=== PATIENT | female | born 1985 | race Two or more races ===

== ENCOUNTER 2022-05-30 09:51 | Emergency (ER) | payer MEDICAID, OTHER ==
[~2022-05-30] VITALS: Ht 167.6 cm; Wt 88.0 kg
[2022-05-30 14:30] VITALS: BP 126/72
[2022-05-30] MEDS ORDERED: KETOROLAC TROMETH 60MG/2ML VIAL IM ONE (15:15)
[2022-05-30] MEDS ORDERED: CYCL-837 PO (15:20)
[2022-05-30] MEDS ORDERED: IBUP800T27 PO (15:20)
== END 2022-05-30 16:01 | disposition home or self-care (01) ==
LOC: ER 09:51
DX: S46.911A Strain of unspecified muscle, fascia and tendon at shoulder and upper arm level, right arm, initial encounter (principal); X58.XXXA Exposure to other specified factors, initial encounter; Y93.89 Activity, other specified; Y92.89 Other specified places as the place of occurrence of the external cause; Y99.8 Other external cause status
CPT/HCPCS: 81025; 96372; 99283; J1885

== ENCOUNTER → 2022-09-16 | Emergency (ER) | payer MEDICAID ==
[~2022-09-16] VITALS: Ht 165.1 cm; Wt 91.0 kg
[~2022-09-16] MED LIST: CYCL-837 PO; HYDROmorphone HCL 2 MG/ML VL/or syr IV ONE; IBUP800T27 PO; KETOROLAC TROMETH 30 MG/ML 1ML VIAL IV ONE; METOCLOPRAMIDE HCL 5MG/ml INJ 2ml VIAL IV ONE; NAP500T PO; SODIUM CHLORIDE 0.9% 1,000 ML IV ONE
[2022-09-16 16:47] LABS: Basophils # (auto) 0.1 10 ^3/uL (0-0.2); Basophils % (auto) 0.9 % (0.0-2.0); Eosinophils # (auto) 0.1 10 ^3/uL (0-0.8); Hematocrit 40.7 % (36.0-46.0); Hemoglobin 13.9 g/dL (12.2-16.2); Lymphocytes # (auto) 2.4 10 ^3/uL (0.4-5.4); Lymphocytes % (auto) 25.2 % (10.0-50.0); Mean Corpuscular Hemoglobin 31.6 pg (28.0-32.0); Mean Corpuscular Hgb Conc. 34.3 g/dL (32.0-36.0); Mean Corpuscular Volume 92.1 fL (80.0-100.0); Monocytes # (auto) 0.5 10 ^3/uL (0-1.3); Monocytes % (auto) 5.7 % (0.0-12.0); Neutrophils # (auto) 6.4 10 ^3/uL (1.6-8.6); Neutrophils % (auto) 67.2 % (37.0-80.0); Nucleated Red Blood Cells % 0.2 %; Red Blood Cells 4.42 10^6/uL (4.0-5.20); Red Cell Distribution Width 12.9 % (11.8-14.3); White Blood Cell 9.6 10^3/uL (4.4-10.8)
[2022-09-17 02:00] VITALS: BP 116/78
== END | disposition home or self-care (01) ==
LOC: EDUNIT# 14:17 → ER 14:17 → EDBD 14:17
DX: S33.5XXA Sprain of ligaments of lumbar spine, initial encounter (principal); X58.XXXA Exposure to other specified factors, initial encounter; Y93.89 Activity, other specified; Y92.89 Other specified places as the place of occurrence of the external cause; Y99.8 Other external cause status
CPT/HCPCS: 36415; 72131; 83690; 84702; 85025; 96361; 96374; 96375; 99285; J1170; J1885; J2765; J7030

== ENCOUNTER 2023-01-29 15:48 | Emergency (ER) | payer MEDICAID, OTHER ==
[~2023-01-29] VITALS: Ht 167.6 cm; Wt 91.1 kg
[~2023-01-29 15:48] MED LIST changes: -HYDROmorphone HCL 2 MG/ML VL/or syr IV ONE; +IBUP-1456 PO; -IBUP800T27 PO; -KETOROLAC TROMETH 30 MG/ML 1ML VIAL IV ONE; -METOCLOPRAMIDE HCL 5MG/ml INJ 2ml VIAL IV ONE; -SODIUM CHLORIDE 0.9% 1,000 ML IV ONE
[2023-01-29] MEDS ORDERED: IBUP-1456 PO (20:30)
[2023-01-29 20:40] VITALS: BP 127/78
== END 2023-01-29 20:54 | disposition home or self-care (01) ==
LOC: ER 15:48
DX: G56.03 Carpal tunnel syndrome, bilateral upper limbs (principal); Z79.1 Long term (current) use of non-steroidal anti-inflammatories (NSAID); Z79.899 Other long term (current) drug therapy
CPT/HCPCS: 29125

== ENCOUNTER 2024-07-30 12:33 | Emergency (ER) | payer MEDICAID, OTHER ==
[~2024-07-30] VITALS: Ht 162.6 cm; Wt 76.3 kg
[2024-07-30 13:00] VITALS: PULSE 75; RESP 15; O2SAT 99
[2024-07-30] MEDS: SODIUM CHLORIDE 0.9% 1,000 ML IV ONE (13:17)
--- NOTE | 2024-07-30 13:35 | ECG ---
[facility] Test Date: 2024-07-30 Test Time: 12:40:59 Pat Name: FARTUN NAJERA Department: er Room: Gender: F Ink Blender: gp : 1985 Requested By: LAZARA DOUGLASS Order Number: [id number] Reading MD: Kai Horta Measurements Intervals [place] Rate: 74 P: 7 MI: 140 QRS: 64 QRSD: 97 T: 49 QT: 400 QTc: 444 Interpretive Statements Sinus rhythm Electronically Signed On 07-30-2024 14:18:43 PST by Kai Horta Please click the below link to view image of tracing.
[2024-07-30 13:36] LABS: Basophils # (auto) 0 10 ^3/uL (0-0.2); Basophils % (auto) 0.3 % (0.0-2.0); Eosinophils # (auto) 0 10 ^3/uL (0-0.8); Eosinophils % (auto) 0.2 % (0.0-7.0); Hematocrit 47.1 % (36.0-46.0); Lymphocytes # (auto) 1.5 10 ^3/uL (0.4-5.4); Lymphocytes % (auto) 9.5 % (10.0-50.0); Mean Corpuscular Hemoglobin 31.9 pg (28.0-32.0); Mean Corpuscular Volume 93.7 fL (80.0-100.0); Monocytes # (auto) 0.7 10 ^3/uL (0-1.3); Monocytes % (auto) 4.2 % (0.0-12.0); Neutrophils # (auto) 13.6 10 ^3/uL (1.6-8.6); Neutrophils % (auto) 85.8 % (37.0-80.0); Platelet Count (auto) 209 10^3/uL (140-450); Red Blood Cells 5.03 10^6/uL (4.0-5.20); Red Cell Distribution Width 13.5 % (11.8-14.3); White Blood Cell 15.9 10^3/uL (4.4-10.8)
[2024-07-30 13:44] LABS: Potassium 3.8 mmol/L (3.5-5.1); Sodium 142 mmol/L (136-145)
[2024-07-30 13:45] LABS: Anion Gap 8 (5-15); Carbon Dioxide 24 mmol/L (20-31)
[2024-07-30] MEDS ORDERED: MAALOX PLUS or MAALOX 30 ML PO ONE (13:45)
[2024-07-30 13:50] LABS: BUN/Creatinine Ratio 16.3 (10.0-20.0); Blood Urea Nitrogen 13 mg/dL (9-23)
[2024-07-30 13:51] LABS: Chloride 110 mmol/L (98-107); Glucose 107 mg/dL (74-106)
--- NOTE | 2024-07-30 14:52 | ED.PDOC ---
Altered Mental Status HPI Comments 81-year-old female with no past medical history presented with complaints of syncope. Patient was at a blood donation camp where she started feeling dizzy during the middle of the transfusion associated with nausea, vomiting, feeling of hot and cold, flushing and dizziness. That resolved transiently and patient went to use the restroom. After finishing the bowel movement, patient is again started feeling dizziness and asked for help. Patient had a syncopal attack after that almost for 10 seconds documented by the blood camp member. Currently patient is feeling thirsty and weak. She mentioned that she recently stopped the depot injection, contraceptive around last weak, and started having heavy menses that lasted for 5 days and resolved 3 days ago, Per EMS, patient's initial blood pressure was 68/47, was started on normal saline and in the ER her blood pressure improved to 85/55 with around 350 mL of fluids. She did not any complain of any abnormal body movement, palpitations, chest pain, shortness of breath, abdominal pain, diarrhea, bleeding from any site. ROS Constitutional: Generalized fatigue Eyes: No: Pain, Vision change, Conjunctivae inflammation, Eyelid inflammation, Other, Redness ENT: No: Ear pain, Ear discharge, Nose pain, Nose discharge, Nose congestion, Mouth pain, Mouth swelling, Throat pain, Throat swelling, Other Respiratory: No: Cough, Dry, Shortness of breath, SOB with excertion, Wheezing, Hemoptysis, Pleuritic Pain, Sputum, Wheezing, Other Cardiovascular: No: Chest Pain, Palpitations, Orthopnea, Paroxysmal Noc. Dyspnea, Edema, Lt Headedness, Other Gastrointestinal: Nausea, vomiting, no Abdominal Pain, Diarrhea, Constipation, Melena, Hematochezia, Other Musculoskeletal: No: other, neck pain, shoulder pain, arm pain, back pain, hand pain, leg pain, foot pain Neurological:; syncope, dizziness, no motor deficit, no sensory deficit Examination General Appearance: Alert, Oriented X3, Cooperative, No acute distress Respiratory: Clear to auscultation, Normal air movement Cardiovascular: Regular rate, Normal S1, Normal S2 Abdominal: Soft, nondistended Extremities: No cyanosis, No edema, Normal pulses, No tenderness/swelling Skin: No rashes, No breakdown Neuro: Normal speech and tone Chief Complaint: Syncope Time Seen by MD: 12:59 Primary Care Provider: VALENTINA Allergies: Coded Allergies: No Known Drug Allergy (Verified Allergy, Unknown, 05/30/22) Home Meds Active Scripts Ibuprofen (Ibuprofen) 800 Mg Tab, 1 TAB PO TID PRN, #30 TAB 0 Refills Prov:ASIF BENJAMIN 01/29/23 Naproxen (NAPROSYN TABLET) 500 Mg Tb, 1 TAB PO BID PRN for 10 Days, #20 TAB 1 Refill Prov:CHRISTOPHE VALDEZ MD 09/16/22 Ibuprofen (Ibuprofen) 800 Mg Tab, 1 TAB PO TID PRN, #30 TAB 0 Refills Prov:ASIF BENJAMIN 05/30/22 Cyclobenzaprine Hcl (Cyclobenzaprine Hcl) 5 Mg Tab, 1 TAB PO QPM, #14 TAB 0 Refills Prov:ASIF BENJAMIN 05/30/22 Information Source: Patient Mode of Arrival: EMS Past Medical History PAST MEDICAL HISTORY: Denies Past Medical History (Other): No past medical history Surgical History: Hernia Repair CARDIAC TECHNICIAN History: No Pertinent CARDIAC TECHNICIAN History Family History Family History: Unknown Family History (Other): No significant family history Social History Smoker: Non-Smoker Alcohol: Denies ETOH Use Drugs: Denies Drug Use Lives In: Home Physical Exam General Appearance: Other (Mentioned in the note) HEENT: Other (Mentioned in the note) Neck: Other (Mentioned in the note) Respiratory: Other (Mentioned in the note) Cardiovascular: Other (mentioned in the note) Breast Exam: Deferred Gastrointestinal: Other (Mentioned in the note) Genitalia: Deferred Pelvic: Deferred Rectal: Deferred Extremities: Other (Mentioned in the note) Neurologic: Other (Mentioned in the note) Cerebellar Function: Other (Mentioned in the note) Reflexes: Other (Mentioned in the note) Skin: Other (Mentioned in the note) Lymphatic: Other (Mentioned in the note) Was a procedure done? Was a procedure done?: No Differential Diagnosis (ALOC) Differential Diagnosis: Dehydration, Hypoglycemia, Sepsis, Seizure, Drug Overdose, ETOH Intoxication, Other (U) X-Ray, Labs, Meds, VS Vital Signs Date Time Temp Pulse Resp B/P (MAP) Pulse Ox O2 Delivery O2 Flow Rate FiO2 07/30/24 17:00 97.5 88 20 102/66 (78) 95 97.5 07/30/24 15:19 90 90/58 91 99/56 125 92/49 07/30/24 15:00 90 15 90/58 (69) 97 07/30/24 13:00 97.5 75 17 92/51 (65) 99 97.5 07/30/24 13:00 75 15 99 Room Air* 0 21 07/30/24 12:45 97.7 79 18 88/55 (66) 99 07/30/24 12:40 74 Lab Test 07/30/24 15:20 07/30/24 13:13 Range/Units Urine Color Yellow Yellow Urine Clarity Turbid H Clear Urine pH 5.5 5.0-9.0 Urine Specific [place] 1.022 1.001-1.035 Urine Protein Negative Negative Urine Ketones Negative Negative Urine Blood Negative Negative /uL Urine Nitrite Negative Negative Urine Bilirubin Negative Negative Urine Urobilinogen Normal Negative mg/dL Urine Leukocyte Esterase 1+ Negative /uL Urine RBC 1 0 - 4 /hpf Urine WBC 11 0 - 5 /hpf Urine Squamous Epithelial Cells Mod <5 /hpf Urine Bacteria Few H None Seen /hpf Urine Mucus Few None Seen Urine Glucose Normal Normal mg/dL Urine Test Negative Negative White Blood Count 15.9 H 4.4-10.8 10^3/uL Red Blood Count 5.03 4.0-5.20 10^6/uL Hemoglobin 16.0 12.2-16.2 g/dL Hematocrit 47.1 H 36.0-46.0 % Mean Corpuscular Volume 93.7 80.0-100.0 fL Mean Corpuscular Hemoglobin 31.9 28.0-32.0 pg Mean Corpuscular Hemoglobin Concent 34.0 32.0-36.0 g/dL Red Cell Distribution Width 13.5 11.8-14.3 % Platelet Count 209 140-450 10^3/uL Mean Platelet Volume 9.8 6.9-10.8 fL Neutrophils (%) (Auto) 85.8 H 37.0-80.0 % Lymphocytes (%) (Auto) 9.5 L 10.0-50.0 % Monocytes (%) (Auto) 4.2 0.0-12.0 % Eosinophils (%) (Auto) 0.2 0.0-7.0 % Basophils (%) (Auto) 0.3 0.0-2.0 % Neutrophils # (Auto) 13.6 H 1.6-8.6 10 ^3/uL Lymphocytes # (Auto) 1.5 0.4-5.4 10 ^3/uL Monocytes # (Auto) 0.7 0-1.3 10 ^3/uL Eosinophils # (Auto) 0 0-0.8 10 ^3/uL Basophils # (Auto) 0 0-0.2 10 ^3/uL Nucleated Red Blood Cells 0.0 % Sodium Level 142 136-145 mmol/L Potassium Level 3.8 3.5-5.1 mmol/L Chloride Level 110 H 98-107 mmol/L Carbon Dioxide Level 24 20-31 mmol/L Anion Gap 8 5-15 Blood Urea Nitrogen 13 9-23 mg/dL Creatinine 0.80 0.550-1.02 mg/dL Glomerular Filtration Rate Calc 97 >90 mL/min BUN/Creatinine Ratio 16.3 10.0-20.0 Serum Glucose 107 H 74-106 mg/dL Calcium Level 9.0 8.7-10.4 mg/dL Current Medications Medications (Trade) Dose Ordered Sig/Luzma Route Start Time Stop Time Status Last Admin Sodium Chloride 1,000 ml @ 1,000 mls/hr Q1H ONCE IV 07/30/24 13:00 07/30/24 13:59 DC 07/30/24 13:17 Ceftriaxone Sodium 50 ml @ 100 mls/hr DAILY@09 ONCE IV 07/30/24 16:30 07/30/24 16:59 DC 07/30/24 16:37 Time of 1ST Reevaluation: 16:41 Reevaluation 1ST: wants to leave AMA Patient Education/Counseling: Diagnosis, Treatment Family Education/Counseling: No Family Present Comments Patient presented with the syncope, dizziness, nausea, vomiting. workup was in itiated. Patient was given: IV fluids, IV Rocephin Labs revealed evidence of UTI, leukocytosis Patient left AMA despite explaining about the risk of leaving AMA Departure 1 Departure Time of Disposition: 17:00 Impression: Primary Impression: Syncope Additional Impressions: Sepsis UTI (urinary tract infection) Left against medical advice Disposition: 07 LEFT AGAINST MEDICAL ADVICE Condition: Other (Undetermined as patient left AMA) Critical Care Note Critical Care Time?: No Stability Stability form required: No Heart Score Heart Score: Heart Score Response (Comments) Value History N/A 0 EKG Normal 0 Age <45 0 Risk Factors No known risk factors 0 Troponin N/A 0 Total 0 ROHAN GILLESPIE RESIDENT Jul 30, 2024 14:52
[2024-07-30 15:57] LABS: Urine Bacteria FEW /hpf (None Seen); Urine Blood Negative /uL (Negative); Urine Clarity Turbid (Clear); Urine Color Yellow (Yellow); Urine Mucus FEW (None Seen); Urine Protein, UAD Negative (Negative); Urine Specific Gravity 1.022 (1.001-1.035); Urine Urobilinogen Normal (Negative); Urine WBC 11 /hpf (0 - 5); Urine pH 5.5 (5.0-9.0)
[2024-07-30] MEDS: cefTRIAXone 1GM/50ML D5W 50 ML IV ONE (16:37)
--- NOTE | 2024-07-30 16:53 | DVHHP2 ---
History of Present Illness History of Present Illness Review of Systems Allergies: Coded Allergies: No Known Drug Allergy (Verified Allergy, Unknown, 05/30/22) Exam Vital Signs Vital Signs Date Time Temp Pulse Resp B/P (MAP) Pulse Ox O2 Delivery O2 Flow Rate FiO2 07/30/24 15:19 90 90/58 91 99/56 125 92/49 07/30/24 15:00 15 97 07/30/24 13:00 97.5 97.5 07/30/24 13:00 Room Air* 0 21 Labs/Xrays Labs Test 07/30/24 15:20 07/30/24 13:13 Range/Units Urine Color Yellow Yellow Urine Clarity Turbid H Clear Urine pH 5.5 5.0-9.0 Urine Specific [place] 1.022 1.001-1.035 Urine Protein Negative Negative Urine Ketones Negative Negative Urine Blood Negative Negative /uL Urine Nitrite Negative Negative Urine Bilirubin Negative Negative Urine Urobilinogen Normal Negative mg/dL Urine Leukocyte Esterase 1+ Negative /uL Urine RBC 1 0 - 4 /hpf Urine WBC 11 0 - 5 /hpf Urine Squamous Epithelial Cells Mod <5 /hpf Urine Bacteria Few H None Seen /hpf Urine Mucus Few None Seen Urine Glucose Normal Normal mg/dL Urine Test Negative Negative White Blood Count 15.9 H 4.4-10.8 10^3/uL Red Blood Count 5.03 4.0-5.20 10^6/uL Hemoglobin 16.0 12.2-16.2 g/dL Hematocrit 47.1 H 36.0-46.0 % Mean Corpuscular Volume 93.7 80.0-100.0 fL Mean Corpuscular Hemoglobin 31.9 28.0-32.0 pg Mean Corpuscular Hemoglobin Concent 34.0 32.0-36.0 g/dL Red Cell Distribution Width 13.5 11.8-14.3 % Platelet Count 209 140-450 10^3/uL Mean Platelet Volume 9.8 6.9-10.8 fL Neutrophils (%) (Auto) 85.8 H 37.0-80.0 % Lymphocytes (%) (Auto) 9.5 L 10.0-50.0 % Monocytes (%) (Auto) 4.2 0.0-12.0 % Eosinophils (%) (Auto) 0.2 0.0-7.0 % Basophils (%) (Auto) 0.3 0.0-2.0 % Neutrophils # (Auto) 13.6 H 1.6-8.6 10 ^3/uL Lymphocytes # (Auto) 1.5 0.4-5.4 10 ^3/uL Monocytes # (Auto) 0.7 0-1.3 10 ^3/uL Eosinophils # (Auto) 0 0-0.8 10 ^3/uL Basophils # (Auto) 0 0-0.2 10 ^3/uL Nucleated Red Blood Cells 0.0 % Sodium Level 142 136-145 mmol/L Potassium Level 3.8 3.5-5.1 mmol/L Chloride Level 110 H 98-107 mmol/L Carbon Dioxide Level 24 20-31 mmol/L Anion Gap 8 5-15 Blood Urea Nitrogen 13 9-23 mg/dL Creatinine 0.80 0.550-1.02 mg/dL Glomerular Filtration Rate Calc 97 >90 mL/min BUN/Creatinine Ratio 16.3 10.0-20.0 Serum Glucose 107 H 74-106 mg/dL Calcium Level 9.0 8.7-10.4 mg/dL Assessment/Plan Plan discussed with: Patient My Orders Orders - JOSELIN BOWERS Procedure Category Date Status Time Ceftriaxone 1gm/50ml PHA 07/31/24 Logged D5w (Rocephin) 09:00 JOSELIN BOWERS Jul 30, 2024 16:53
[2024-07-30 17:00] VITALS: BP 102/66; PULSE 88; RESP 20; TEMP 97.5; O2SAT 95
[2024-07-31] MEDS ORDERED: cefTRIAXone 1GM/50ML D5W 50 ML IV SCH (09:00)
== END 2024-07-30 16:41 | disposition left against medical advice (07) ==
LOC: ER 12:33 → EDBD 12:33 → ER 16:41
DX: A41.9 Sepsis, unspecified organism (principal); N39.0 Urinary tract infection, site not specified; R55 Syncope and collapse; Z98.890 Other specified postprocedural states; Z53.29 Procedure and treatment not carried out because of patient's decision for other reasons; Z79.899 Other long term (current) drug therapy
CPT/HCPCS: 36415; 80048; 81001; 81025; 85025; 86850; 86900; 86901; 93005; 96361; 96365; 99285; J0696; J7030